=== PATIENT | female | born 1960 | race Caucasian/White ===

== ENCOUNTER → 2019-12-25 14:13 | Outpatient (CLI) | payer OTHER, SELFPAY ==
--- NOTE | ~2019-12-25 | DEXA_ITS ---
Bone Density Report Name: Aby Cazares Age: 59 Sex: Female Ethnicity: White Date of : 1960 Indication: postmenopausal; screening for osteoporosis; Referring Provider: MACHO CANTRELL Study: Bone densitometry was performed. Exam Date: December 25, 2019 Accession number: [id number] Bone Density: Region BMD T-score Z-score Classification AP Spine (L1-L4) 0.935 -1.0 0.5 Normal Femoral Neck (Left) 0.680 -1.5 -0.2 Osteopenia Total Hip (Left) 0.863 -0.6 0.4 Normal Femoral Neck (Right) 0.641 -1.9 -0.5 Osteopenia Total Hip (Right) 0.843 -0.8 0.2 Normal Total Hip Mean 0.853 -0.7 0.3 Normal World Health Organization criteria for BMD impression classify patients as: Normal (T-score at or above -1.0), Osteopenia (T-score between -1.0 and -2.5), or Osteoporosis (T-score at or below -2.5). 10-year Fracture Risk(1): Major Osteoporotic Fracture 9.1% Hip Fracture 1.0% Reported Risk Factors: [place] (), Neck BMD=0.641, BMI=29.3 (1) FRAX(R) Version 3.08. Fracture probability calculated for an untreated patient. Fracture probability may be lower if the patient has received treatment. Previous Exams: Region Exam Age BMD T-score BMD Change BMD Change Date g/cm2 vs Baseline vs Previous AP Spine(L1-L4) 12/25/2019 59 0.935 -1.0 -0.089* -0.089* 12/06/2016 56 1.024 -0.2 Total Hip(Left) 12/25/2019 59 0.863 -0.6 -0.059* -0.059* 12/06/2016 56 0.922 -0.2 Total Hip(Right) 12/25/2019 59 0.843 -0.8 -0.041* -0.041* 12/06/2016 56 0.883 -0.5 *Denotes significance at 95% confidence level, LSC for AP Spine = 0.022 g/cm2, LSC for Total Hip = 0.027 g/cm2 Clinical Information Provided by Patient: Has used the following medications: Vitamin D Patient maximum height was 65.5 Menopause Age: 42 No regular weight bearing exercise Drinks caffeinated beverages Onset of menses at age 12.5 Number of children 4 Impression: The patient has low bone mass, based on the Right Femoral Neck T-score. The patient has an estimated ten-year risk of hip fracture of 1% and an estimated ten-year risk of major fracture of 9.1%, based on the WHO FRAX algorithm. The BMD for the AP Spine(L1-L4) decreased, changing by -0.089 since the last DXA exam. The BMD for the Total Hip(Left) decreased, changing by -0.059 since the last DXA exam. The BMD for the Total Hip(Right) decreased, changing by -0.041 since the last D
== END ==
PROVIDERS: PCP Physician Assistant; Visit Provider Obstetrics & Gynecology Gynecology
DX: M85.89 Other specified disorders of bone density and structure, multiple sites (principal)
CPT/HCPCS: 77080

== ENCOUNTER 2020-03-20 07:21 | Outpatient (CLI) | payer OTHER, SELFPAY ==
[2020-03-20 08:01] LABS: Alanine Aminotransferase 27 U/L (4-35); Albumin Level 4.4 g/dL (3.5-5.1); Alkaline Phosphatase 83 U/L (38-126); Aspartate Amino Transferase 30 U/L (14-36); Bilirubin,Total 0.7 mg/dL (0.2-1.3); Blood Urea Nitrogen 12 mg/dL (7-17); Calcium 9.4 mg/dL (8.4-10.2); Carbon Dioxide 30 mmol/L (22-30); Chloride 102 mmol/L (98-107); Cholesterol 186 mg/dL (0-200); Estimated Glomerular Filt Rate > 60; Glucose 100 mg/dL (65-105); HDL Direct 69 mg/dL; Potassium 3.3 mmol/L (3.4-5.0); Sodium 139 mmol/L (137-145); Triglycerides 75 mg/dL (<150)
[2020-03-20 08:12] LABS: LDL Cholesterol Direct 94 mg/dL
[2020-03-20 08:37] LABS: Vitamin D 25 Hydroxy 59.2 ng/mL
[2020-03-20 08:42] LABS: Creatinine Urine 48.5 mg/dL
[2020-03-20 09:22] LABS: MALB Creatinine Ratio < 12.4 mg/g (0-30); Microalbumin Urine Random < 6.0 mg/L (0-16.7)
== END 2020-03-20 07:22 | disposition home or self-care (01) ==
PROVIDERS: PCP Physician Assistant; Visit Provider Obstetrics & Gynecology Gynecology
DX: E11.69 Type 2 diabetes mellitus with other specified complication (principal); E78.5 Hyperlipidemia, unspecified; R53.83 Other fatigue; E55.9 Vitamin D deficiency, unspecified
CPT/HCPCS: 36415; 80053; 80061; 82043; 82306; 83036; 84443

== ENCOUNTER 2020-04-17 09:36 | Outpatient (CLI) | payer OTHER, SELFPAY ==
[2020-04-17 10:10] LABS: Alanine Aminotransferase 47 U/L (4-35); Albumin Level 4.5 g/dL (3.5-5.1); Alkaline Phosphatase 103 U/L (38-126); Aspartate Amino Transferase 42 U/L (14-36); Bilirubin,Total 0.6 mg/dL (0.2-1.3); Blood Urea Nitrogen 12 mg/dL (7-17); Calcium 9.5 mg/dL (8.4-10.2); Carbon Dioxide 28 mmol/L (22-30); Chloride 104 mmol/L (98-107); Estimated Glomerular Filt Rate > 60; Glucose 123 mg/dL (65-105); Potassium 4.1 mmol/L (3.4-5.0); Sodium 139 mmol/L (137-145)
== END 2020-04-17 09:37 | disposition home or self-care (01) ==
PROVIDERS: PCP Physician Assistant; Visit Provider Physician Assistant
DX: E87.6 Hypokalemia (principal)
CPT/HCPCS: 36415; 80053

== ENCOUNTER 2020-08-03 15:13 | Outpatient (CLI) | payer OTHER, SELFPAY ==
[2020-08-03 16:21] LABS: Alanine Aminotransferase 40 U/L (4-35); Albumin Level 4.4 g/dL (3.5-5.1); Alkaline Phosphatase 77 U/L (38-126); Aspartate Amino Transferase 41 U/L (14-36); Bilirubin,Total 0.5 mg/dL (0.2-1.3)
[2020-08-03 16:23] LABS: Hemoglobin A1C 7.6 % (<5.7)
== END 2020-08-03 15:14 | disposition home or self-care (01) ==
LOC: ANHLAB 15:21
PROVIDERS: PCP Physician Assistant
DX: E11.65 Type 2 diabetes mellitus with hyperglycemia (principal)
CPT/HCPCS: 36415; 80076; 83036

== ENCOUNTER 2021-02-23 08:41 | Outpatient (CLI) | payer OTHER, SELFPAY ==
[2021-02-23 09:54] LABS: Alanine Aminotransferase 41 U/L (4-35); Albumin Level 4.3 g/dL (3.5-5.1); Alkaline Phosphatase 71 U/L (38-126); Anion Gap 6 mmol/L (8-16); Aspartate Amino Transferase 40 U/L (14-36); Bilirubin,Total 0.5 mg/dL (0.2-1.3); Blood Urea Nitrogen 14 mg/dL (7-17); Calcium 9.3 mg/dL (8.4-10.2); Carbon Dioxide 31 mmol/L (22-30); Chloride 105 mmol/L (98-107); Cholesterol 196 mg/dL (0-200); Estimated Glomerular Filt Rate > 60; Glucose 106 mg/dL (65-105); HDL Direct 67 mg/dL; Potassium 3.5 mmol/L (3.4-5.0); Sodium 142 mmol/L (137-145); Triglycerides 106 mg/dL (<150)
[2021-02-23 10:05] LABS: LDL Cholesterol Direct 111 mg/dL
[2021-02-23 10:24] LABS: Vitamin D 25 Hydroxy 53.5 ng/mL
[2021-02-23 10:33] LABS: Hemoglobin A1C 9.3 % (<5.7)
[2021-02-23 10:56] LABS: MALB Creatinine Ratio < 6.1 mg/g (0-30); Microalbumin Urine Random < 6.0 mg/L (0-16.7)
== END 2021-02-23 08:42 | disposition home or self-care (01) ==
PROVIDERS: PCP Physician Assistant; Referring Provider Obstetrics & Gynecology Gynecology; Visit Provider Physician Assistant
DX: E87.6 Hypokalemia (principal); E11.65 Type 2 diabetes mellitus with hyperglycemia; Z79.4 Long term (current) use of insulin
CPT/HCPCS: 36415; 80053; 80061; 82043; 82306; 83036; 84443

== ENCOUNTER 2021-07-02 07:31 | Outpatient (CLI) | payer OTHER, SELFPAY ==
[2021-07-02 08:22] LABS: Alanine Aminotransferase 29 U/L (4-35); Albumin Level 4.2 g/dL (3.5-5.1); Alkaline Phosphatase 73 U/L (38-126); Anion Gap 8 mmol/L (8-16); Aspartate Amino Transferase 29 U/L (14-36); Bilirubin,Total 0.7 mg/dL (0.2-1.3); Blood Urea Nitrogen 12 mg/dL (7-17); Carbon Dioxide 27 mmol/L (22-30); Chloride 105 mmol/L (98-107); Estimated Glomerular Filt Rate > 60; Glucose 105 mg/dL (65-110); Potassium 3.5 mmol/L (3.4-5.0); Sodium 140 mmol/L (137-145)
[2021-07-02 08:24] LABS: Hemoglobin A1C 8.6 % (<5.7)
== END 2021-07-02 07:32 | disposition home or self-care (01) ==
LOC: ANHLAB 07:33
PROVIDERS: PCP Physician Assistant; Visit Provider Physician Assistant
DX: E11.8 Type 2 diabetes mellitus with unspecified complications (principal); Z79.4 Long term (current) use of insulin
CPT/HCPCS: 36415; 80053; 83036

== ENCOUNTER 2021-10-17 00:39 | Day surgery (SDC) | payer OTHER, SELFPAY ==
[2021-10-17 08:43] VITALS: BP 126/72; PULSE 91; RESP 14; TEMP 36.6; O2SAT 100; BMI 28.1
[2021-10-17] MEDS: LACTATED RINGERS 1,000 ML 150 ML IV CONT (08:56)
[2021-10-17 09:00] LABS: Glucose Point of Care 102 mg/dl (65-105)
--- NOTE | 2021-10-17 09:08 | WPDGICN ---
Assessment and Plan Assessment and plan (1) Family history of colon cancer in father: Code(s): Z80.0 - Family history of malignant neoplasm of digestive organs Status: Acute Assessment and Plan: Patient's father had colon cancer. For this reason screening colonoscopy advised 5 year intervals. (2) History of colon polyps: Code(s): Z86.010 - Personal history of colonic polyps Status: Acute Assessment and Plan: Patient has a past history of adenomatous colon polyps. Plan to continue surveillance colonoscopies at 5 year intervals. GI Consult Note Consult date/time: 10/17/21 09:08 HPI: Aby Cazares is a 61 year old female Presents for surveillance screening colonoscopy. Patient's current weight appetite and bowel movements are normal. She denies abdominal pain. She has had no bleeding. Her family history is significant that her father had colon cancer. Patient has had interval colonoscopies for some time. Most recent colonoscopy 5 years ago. She reports having been identified as having an adenomatous colon polyp on at least 1 interval. Review of Systems Review of Systems: All systems reviewed & are unremarkable except as noted in HPI and below [facility] Family History Family History (Updated 06/09/16 @ 23:19 by DOCTOR UNKNOWN) Mother Hypertension Family history of diabetes mellitus in first degree relative Family history of congestive heart failure Father Family history of diabetes mellitus in first degree relative Family history of heart disease in male family member before age 55 Other Cerebrovascular accident Family history of allergic disorder Social History Social History Smoking status: Never smoker Alcohol intake: current Drinks per week: 3 Living arrangements: with family Spiritual care concerns: No Meds Home Medications and Allergies Home Medications Medication Instructions Recorded Confirmed Type canagliflozin-metformin [Invokamet 2 tablet PO DAILY 09/28/21 10/17/21 History XR] cyclosporine [Restasis] 1 drp OPHTHALMIC (EYE) BID 09/28/21 10/17/21 History dulaglutide [Trulicity] 1.5 mg SUBCUT WEEKLY 09/28/21 10/17/21 History ergocalciferol (vitamin D2) 1,250 mcg PO WEEKLY 09/28/21 10/17/21 History furosemide 20 mg PO DAILY 09/28/21 10/17/21 History insulin glargine [Lantus Solostar 40 unit SUBCUT DAILY 09/28/21 10/17/21 History U-100 Insulin] linaclotide [Linzess] 72 mcg PO DAILY 09/28/21 10/17/21 History lisinopril 20 mg PO DAILY 09/28/21 10/17/21 History pantoprazole 40 mg PO DAILY 09/28/21 10/17/21 History potassium chloride 10 meq PO DAILY 09/28/21 10/17/21 History pravastatin 40 mg PO DAILY 09/28/21 10/17/21 History Allergies Allergy/AdvReac Type Severity Reaction Status Date / Time adhesive Allergy Unknown BLISTERS Unverified 10/17/21 08:42 Sulfa (Sulfonamide Allergy Unknown Unknown Verified 10/17/21 08:42 Antibiotics) Vital Signs Vital Signs - 24 hr 10/17/21 08:43 Temperature 97.9 F Pulse Rate 91 Respiratory Rate 14 Blood Pressure 126/72 Pulse Oximetry 100 Exam Narrative: Physical exam reveals patient to be alert. Vital signs stable. HEENT exam is unremarkable. Patient is anicteric. Lungs are clear to auscultation and percussion. Heart is without murmur or extra sounds. Abdominal exam bowel sounds are present soft nontender with no organomegaly. Digital external rectal exam is normal.
--- NOTE | 2021-10-17 09:34 | P.PNAN_ITS ---
Anes - Initial Pre Proc Eval Procedure: Operation Date: 10/17/21 09:30 Proposed Procedures p Screening Colonoscopy - Jameson Barahona MD Date/Time: 10/17/21 09:34 Surgeon: Jameson Barahona MD Pre Op Diagnosis: hx of colon polyps Patient Data Age: 61 Gender: F Height: 1.65 m Weight: 76.8 kg Last Vital Signs Temp 97.9 F 10/17/21 08:43 Pulse 91 10/17/21 08:43 Resp 14 10/17/21 08:43 BP 126/72 10/17/21 08:43 Pulse Ox 100 10/17/21 08:43 Allergies Allergy/AdvReac Type Severity Reaction Status Date / Time adhesive Allergy Unknown BLISTERS Unverified 10/17/21 08:42 Sulfa (Sulfonamide Allergy Unknown Unknown Verified 10/17/21 08:42 Antibiotics) Home Medications Medication Instructions Recorded Confirmed Type canagliflozin-metformin [Invokamet 2 tablet PO DAILY 09/28/21 10/17/21 History XR] cyclosporine [Restasis] 1 drp OPHTHALMIC (EYE) BID 09/28/21 10/17/21 History dulaglutide [Trulicity] 1.5 mg SUBCUT WEEKLY 09/28/21 10/17/21 History ergocalciferol (vitamin D2) 1,250 mcg PO WEEKLY 09/28/21 10/17/21 History furosemide 20 mg PO DAILY 09/28/21 10/17/21 History insulin glargine [Lantus Solostar 40 unit SUBCUT DAILY 09/28/21 10/17/21 History U-100 Insulin] linaclotide [Linzess] 72 mcg PO DAILY 09/28/21 10/17/21 History lisinopril 20 mg PO DAILY 09/28/21 10/17/21 History pantoprazole 40 mg PO DAILY 09/28/21 10/17/21 History potassium chloride 10 meq PO DAILY 09/28/21 10/17/21 History pravastatin 40 mg PO DAILY 09/28/21 10/17/21 History Laboratory Tests 10/17/21 08:54 POC Capillary Glucose 102 mg/dl mg/dl (65-105) Patient hx anesthesia problems: none Family hx anesthesia problems: none Results Review: All pre-operative results and documents have been reviewed as part of the pre-operative evaluation. [facility] Family History Family History (Updated 06/09/16 @ 23:19 by DOCTOR UNKNOWN) Mother Hypertension Family history of diabetes mellitus in first degree relative Family history of congestive heart failure Father Family history of diabetes mellitus in first degree relative Family history of heart disease in male family member before age 55 Other Cerebrovascular accident Family history of allergic disorder Social History Social History Smoking status: Never smoker Alcohol intake: current Drinks per week: 3 Living arrangements: with family Spiritual care concerns: No Anes - Eval Final PreProcedure Day of Procedure 10/17/21 09:34 Patient weight: overweight Heart: regular rate and rhythm Lungs: clear to auscultation Airway: Mallampati scale class II Neurological: alert and oriented Last oral intake: >/= 8 hours ASA classification: III Emergent: no Anesthetic plan: proceed Anesthesia type and monitoring: general GIVS and standard monitoring Results Review: All pre-operative results and documents have been reviewed as part of the pre-operative evaluation. Informed Consent: The patient's anesthetic plan and its attendant risks and benefits were discussed with the patient/family/POA. Questions were solicited and answers provided to the satisfaction of the patient/fam
[2021-10-17 09:51] VITALS: BP 115/77; PULSE 92; RESP 19; O2SAT 99
[2021-10-17 10:00] VITALS: BP 143/85; PULSE 88; RESP 16; O2SAT 100
[2021-10-17 10:03] LABS: Glucose Point of Care 72 mg/dl (65-105)
[2021-10-17 10:10] VITALS: BP 116/65; PULSE 79; RESP 16; O2SAT 98
== END 2021-10-17 10:00 | disposition home or self-care (01) ==
PROVIDERS: PCP Physician Assistant; Visit Provider Internal Medicine Gastroenterology
PROC: 0DJD8ZZ Inspection of Lower Intestinal Tract, Via Natural or Artificial Opening Endoscopic (ICD-10-PCS; CPT 45378; principal; 2021-10-17 09:30)
DX: Z12.11 Encounter for screening for malignant neoplasm of colon (principal); K64.8 Other hemorrhoids; Z80.0 Family history of malignant neoplasm of digestive organs; Z86.010 Personal history of colon polyps; Z79.4 Long term (current) use of insulin
CPT/HCPCS: 45378; 82948; J2704; J7120

== ENCOUNTER 2021-11-21 15:27 | Outpatient (CLI) | payer OTHER, SELFPAY ==
[2021-11-21 15:56] LABS: Alanine Aminotransferase 29 U/L (4-35); Albumin Level 4.3 g/dL (3.5-5.1); Alkaline Phosphatase 87 U/L (38-126); Anion Gap 9 mmol/L (8-16); Aspartate Amino Transferase 28 U/L (14-36); Bilirubin,Total 0.5 mg/dL (0.2-1.3); Blood Urea Nitrogen 14 mg/dL (7-17); Calcium 9.4 mg/dL (8.4-10.2); Carbon Dioxide 27 mmol/L (22-30); Chloride 99 mmol/L (98-107); Estimated Glomerular Filt Rate > 60; Glucose 291 mg/dL (65-110); Potassium 3.6 mmol/L (3.4-5.0); Sodium 135 mmol/L (137-145)
[2021-11-21 18:32] LABS: Hemoglobin A1C 8.4 % (<5.7)
== END 2021-11-21 15:28 | disposition home or self-care (01) ==
LOC: ANHLAB 15:29
PROVIDERS: PCP Physician Assistant; Visit Provider Physician Assistant
DX: E11.69 Type 2 diabetes mellitus with other specified complication (principal); E78.5 Hyperlipidemia, unspecified
CPT/HCPCS: 36415; 80053; 83036; 84443

== ENCOUNTER 2022-05-13 08:57 | Outpatient (CLI) | payer OTHER, SELFPAY ==
[2022-05-13 10:13] LABS: Alanine Aminotransferase 38 U/L (6-35); Albumin Level 4.2 g/dL (3.5-5.1); Alkaline Phosphatase 85 U/L (38-126); Anion Gap 4 mmol/L (8-16); Aspartate Amino Transferase 39 U/L (14-36); Bilirubin,Total 0.9 mg/dL (0.2-1.3); Blood Urea Nitrogen 12 mg/dL (7-17); Calcium 8.6 mg/dL (8.4-10.2); Carbon Dioxide 30 mmol/L (22-30); Chloride 107 mmol/L (98-107); Estimated Glomerular Filt Rate > 60; Glucose 133 mg/dL (65-110); Potassium 3.5 mmol/L (3.4-5.0); Sodium 141 mmol/L (137-145)
[2022-05-13 10:16] LABS: Hemoglobin A1C 9.6 % (<5.7)
== END 2022-05-13 08:58 | disposition home or self-care (01) ==
LOC: ANHLAB 09:00
PROVIDERS: PCP Physician Assistant; Visit Provider Physician Assistant
DX: E11.8 Type 2 diabetes mellitus with unspecified complications (principal); Z79.4 Long term (current) use of insulin
CPT/HCPCS: 36415; 80053; 83036

== ENCOUNTER 2023-03-12 15:53 | Outpatient (CLI) | payer OTHER, SELFPAY | END 2023-03-12 15:54 | disposition home or self-care (01) | LOC: ANHLAB 15:54 | PROVIDERS: PCP Physician Assistant; Visit Provider Obstetrics & Gynecology Gynecology | DX: E55.9 Vitamin D deficiency, unspecified (principal) | CPT/HCPCS: 36415; 82306 ==

== ENCOUNTER → 2023-06-04 10:57 | Outpatient (CLI) | payer OTHER, SELFPAY ==
--- NOTE | ~2023-06-04 | DEXA_ITS ---
Bone Density Report Name: ERROL ARAUJO Age: 62 Sex: Female Ethnicity: White Date of : 1960 Indication: postmenopausal; screening for osteoporosis; Referring Provider: MACHO CANTRELL Study: Bone densitometry was performed. Exam Date: June 04, 2023 Accession number: [id number] Bone Density: Region BMD T-score Z-score Classification AP Spine (L1-L4) 0.920 -1.2 0.6 Osteopenia Femoral Neck (Left) 0.680 -1.5 0.0 Osteopenia Total Hip (Left) 0.861 -0.7 0.6 Normal Femoral Neck (Right) 0.620 -2.1 -0.6 Osteopenia Total Hip (Right) 0.834 -0.9 0.3 Normal Total Hip Mean 0.848 -0.8 0.5 Normal World Health Organization criteria for BMD impression classify patients as: Normal (T-score at or above -1.0), Osteopenia (T-score between -1.0 and -2.5), or Osteoporosis (T-score at or below -2.5). 10-year Fracture Risk(1): Major Osteoporotic Fracture 10% Hip Fracture 1.5% Reported Risk Factors: [place] (), Neck BMD=0.620, BMI=30.2 (1) FRAX(R) Version 3.08. Fracture probability calculated for an untreated patient. Fracture probability may be lower if the patient has received treatment. Previous Exams: Region Exam Age BMD T-score BMD Change BMD Change Date g/cm2 vs Baseline vs Previous AP Spine(L1-L4) 06/04/2023 62 0.920 -1.2 -0.104* -0.015 12/25/2019 59 0.935 -1.0 -0.089* -0.089* 12/06/2016 56 1.024 -0.2 Total Hip(Left) 06/04/2023 62 0.861 -0.7 -0.061* -0.002 12/25/2019 59 0.863 -0.6 -0.059* -0.059* 12/06/2016 56 0.922 -0.2 Total Hip(Right) 06/04/2023 62 0.834 -0.9 -0.050* -0.009 12/25/2019 59 0.843 -0.8 -0.041* -0.041* 12/06/2016 56 0.883 -0.5 *Denotes significance at 95% confidence level, LSC for AP Spine = 0.022 g/cm2, LSC for Total Hip = 0.027 g/cm2 Clinical Information Provided by Patient: Has used the following medications: Vitamin D, MTV Patient maximum height was 65.5 Menopause Age: 42 No regular weight bearing exercise Drinks caffeinated beverages Onset of menses at age 12 Number of children 4 Impression: The patient has low bone mass, based on the Right Femoral Neck T-score. The patient has an estimated ten-year risk of hip fracture of 1.5% and an estimated ten-year risk of major fracture of 10%, based on the WHO FRAX algorithm. No significant bone loss was observed. Discussion:
== END ==
PROVIDERS: PCP Obstetrics & Gynecology Gynecology; Visit Provider Obstetrics & Gynecology Gynecology
DX: Z78.0 Asymptomatic menopausal state (principal); M85.89 Other specified disorders of bone density and structure, multiple sites
CPT/HCPCS: 77080

== ENCOUNTER 2023-06-21 06:39 | Day surgery (SDC) | payer OTHER, SELFPAY ==
--- NOTE | 2023-06-20 10:48 | WPDANESEPPF ---
Anes - Initial Pre Proc Eval Procedure: Operation Date: 06/21/23 08:30 Proposed Procedures p Esophagogastroduodenoscopy - Jameson Barahona MD Date/Time: 06/20/23 10:48 Surgeon: Jameson Barahona MD Pre Op Diagnosis: Gerd without Esophagitis, Unspecifed Dysphagia Patient Data Age: 62 Gender: F Height: 1.66 m Weight: 83.5 kg Allergies Allergy/AdvReac Type Severity Reaction Status Date / Time adhesive Allergy Unknown BLISTERS Verified 06/21/23 07:26 Sulfa (Sulfonamide Allergy Unknown Unknown Verified 06/21/23 07:26 Antibiotics) Home Medications Medication Instructions Recorded Confirmed Type cyclosporine 0.05 % eye drops in a 1 drp ophthalmic (eye) BID 09/28/21 06/21/23 History dropperette (Restasis) ergocalciferol (vitamin D2) 1,250 1,250 mcg PO WEEKLY 09/28/21 06/21/23 History mcg (50,000 unit) capsule furosemide 20 mg tablet 20 mg PO DAILY 09/28/21 06/21/23 History lisinopril 20 mg tablet 20 mg PO DAILY 09/28/21 06/21/23 History pantoprazole 40 mg tablet,delayed 40 mg PO DAILY 09/28/21 06/21/23 History release potassium chloride 10 mEq 10 meq PO DAILY 09/28/21 06/21/23 History tablet,extended release pravastatin 40 mg tablet 40 mg PO DAILY 09/28/21 06/21/23 History linaclotide 72 mcg capsule See Rx Instructions .Route 12/11/22 06/21/23 Rx (Linzess) .COMPLEX #30 caps dulaglutide 1.5 mg/0.5 mL 3 mg subcut WEEKLY 06/06/23 06/21/23 History subcutaneous pen injector (Trulicity) empagliflozin 12.5 mg-metformin ER 1 tablet PO BID 06/06/23 06/21/23 History 1,000 mg tablet,extended rel 24 hr (Synjardy XR) insulin degludec 200 unit/mL (3 40 unit subcut DAILY 06/06/23 06/21/23 History mL) subcutaneous pen (Tresiba FlexTouch U-200 insulin) Patient hx anesthesia problems: none Family hx anesthesia problems: none Results Review: All pre-operative results and documents have been reviewed as part of the pre-operative evaluation. [facility] Past Medical History Medical History (Updated 06/20/23 @ 10:49 by Nathaniel Vilchis DO) Diabetes type 2, controlled Gastroesophageal reflux disease Hyperlipidemia Hypertension Surgical History Surgical History (Updated 06/20/23 @ 10:49 by Nathaniel Vilchis DO) History of History of tubal ligation Family History Family History Mother Hypertension Family history of diabetes mellitus in first degree relative Family history of congestive heart failure Father Family history of diabetes mellitus in first degree relative Family history of heart disease in male family member before age 55 Other Cerebrovascular accident Family history of allergic disorder Social History Social History Smoking status: Never smoker Alcohol intake: current Drinks per week: 3 Substance use: never Substance use type: does not use Living arrangements: with family Spiritual care concerns: No Anes - Eval Final PreProcedure Day of Procedure 06/20/23 10:48 Patient weight: obese Heart: regular rate and rhythm Lungs: clear to auscultation Airway: Mallampati scale class II Neurological: alert and oriented Last oral intake: >/= 8 hours ASA classification: III Emergent: no Anesthetic plan: proceed Anesthesia type and monitoring: general GIVS and standard monitoring Results Review: All pre-operative results and documents have been reviewed as part of the pre-operative evaluation. Informed Consent: The patient's anesthetic plan and its attendant risks and benefits were discussed with the patient/family/POA. Questions were solicited and answers provided to the satisfaction of the patient/family/POA.
[2023-06-21 07:21] VITALS: BP 146/83; PULSE 96; RESP 16; TEMP 36.4; O2SAT 99
--- NOTE | 2023-06-21 07:27 | WPDHPUPDATE1 ---
History and Physical Update Update Date/Time: 06/21/23 07:27 History and Physical has been reviewed, including an updated exam of the patient. There are NO changes in the patient's condition. Risks, benefits, and alternatives have been discussed and questions answered. Patient agrees to proceed with procedure.
[2023-06-21] MEDS: LACTATED RINGERS 1,000 ML 150 ML IV CONT (07:41)
[2023-06-21 07:42] LABS: Glucose Point of Care 116 mg/dl (65-105)
[2023-06-21 08:42] VITALS: BP 124/73; PULSE 88; RESP 16; O2SAT 99
[2023-06-21 08:52] VITALS: BP 128/77; PULSE 83; RESP 16; O2SAT 99
[2023-06-21 09:02] VITALS: BP 139/82; PULSE 74; RESP 15; O2SAT 99
--- NOTE | 2023-06-21 12:34 | WPDANESPN ---
Anes - Prog Note Post-Op Date/Time: 06/21/23 12:34 Cardiovascular status: normal Respiratory status: normal Airway patency: baseline Mental status: baseline Post-Op hydration status: normal Vital Signs: Last Vital Signs Temp 36.4 C L 06/21/23 07:21 Pulse 74 06/21/23 09:02 Resp 15 06/21/23 09:02 BP 139/82 06/21/23 09:02 Pulse Ox 99 06/21/23 09:02 O2 Del Method Room Air 06/21/23 09:02 Pain Score (VAS): 0 I/O: Intake & Output 06/20/23 06/21/23 06/21/23 23:59 07:59 15:59 Intake Total 200 Balance 200 06/21/23 07:38 POC Capillary Glucose 116 H Post-procedural complaints: none Patient Feedback: Patient satisfied with anesthetic care. Other Findings: Patient vital signs back to baseline. Patient denies nausea and vomiting. Patient's pain under control. Patient OK for discharge.
== END 2023-06-21 09:27 | disposition home or self-care (01) ==
PROVIDERS: PCP Physician Assistant; Visit Provider Internal Medicine Gastroenterology
PROC: 0DJ08ZZ Inspection of Upper Intestinal Tract, Via Natural or Artificial Opening Endoscopic (ICD-10-PCS; CPT 43235; principal; 2023-06-21 08:30)
DX: K21.9 Gastro-esophageal reflux disease without esophagitis (principal); R13.19 Other dysphagia; K31.7 Polyp of stomach and duodenum
CPT/HCPCS: 43251; 43450

== ENCOUNTER 2023-06-21 08:00 | Outpatient (NON) | payer OTHER, SELFPAY | END 2023-06-21 08:01 | disposition home or self-care (01) | PROVIDERS: PCP Physician Assistant; Visit Provider Internal Medicine Gastroenterology | DX: K21.9 Gastro-esophageal reflux disease without esophagitis (principal) | CPT/HCPCS: 88305 ==

== ENCOUNTER 2025-08-19 15:16 | Outpatient (CLI) | payer OTHER, SELFPAY ==
--- NOTE | ~2025-08-19 | DEXA_ITS ---
Bone Density Report Name: ERROL ARAUJO Age: 65 Sex: Female Ethnicity: White Date of : 1960 Indication: osteopenia; height loss; inflammatory bowel disease; Referring Provider: MACHO CANTRELL Study: Bone densitometry was performed. Exam Date: August 19, 2025 Accession number: [id number] Bone Density: Region BMD T-score Z-score Classification AP Spine(L1-L4) 0.881 -1.5 0.4 Osteopenia Femoral Neck (Left) 0.661 -1.7 -0.1 Osteopenia Total Hip (Left) 0.824 -1.0 0.4 Normal Femoral Neck (Right) 0.560 -2.6 -1.0 Osteoporosis Total Hip (Right) 0.799 -1.2 0.2 Osteopenia Total Hip Mean 0.812 -1.1 0.3 Osteopenia World Health Organization criteria for BMD impression classify patients as: Normal (T-score at or above -1.0), Osteopenia (T-score between -1.0 and -2.5), or Osteoporosis (T-score at or below -2.5). 10-year Fracture Risk: FRAX not reported because: Some T-score for Spine Total or Hip Total or Femoral Neck at or below -2.5 Previous Exams: -- Region Exam Age BMD T-score BMD Change BMD Change Date g/cm2 vs Baseline vs Previous -- AP Spine (L1-L4) 08/19/2025 65 0.881 -1.5 -13.9%* -4.2%* 06/04/2023 62 0.920 -1.2 -10.1%* -1.6% 12/25/2019 59 0.935 -1.0 -8.7%* -8.7%* 12/06/2016 56 1.024 -0.2 Total Hip(Left) 08/19/2025 65 0.824 -1.0 -10.6%* -4.3%* 06/04/2023 62 0.861 -0.7 -6.6%* -0.2% 12/25/2019 59 0.863 -0.6 -6.4%* -6.4%* 12/06/2016 56 0.922 -0.2 Total Hip(Right) 08/19/2025 65 0.799 -1.2 -9.5%* -4.1%* 06/04/2023 62 0.834 -0.9 -5.6%* -1.1% 12/25/2019 59 0.843 -0.8 -4.6%* -4.6%* 12/06/2016 56 0.883 -0.5 -- *Denotes significance at 95% confidence level, LSC for AP Spine = 0.022 g/cm2, LSC for Total Hip = 0.027 g/cm2 Clinical Information Provided by Patient: Has used the following medications: Vitamin D Has the following medical conditions: Inflammatory bowel diseases Patient maximum height was 66 Menopause Age: 42 No regular weight bearing exercise Drinks caffeinated beverages Onset of menses at age 12 Number of children 3 Impression: The patient has osteoporosis, based on the Right Femoral Neck T-score. The BMD for the AP Spine (L1-L4) decreased, changing by -4.2% since the last DXA exam. The BMD for the Total Hip(Left) decreased, changing by -4.3% since the last DXA exam. The BMD for the Total Hip(Right) decreased, changing by -4.1% since the last DXA exam. Discussion: INCREASED RISK OF FRACTURE. BONE DENSITY IS UNDESIRABLY LOW AT ONE OR MORE SKELETAL SITES, CONSISTENT WITH POSTMENOPAUSAL OSTEOPOROSIS. This patient's lowest T-score meets the World Health Organization's (WHO) criteria for osteoporosis at one or more sites (T-score -2.5 or below). In untreated patients, the risk of osteoporotic fracture increases approximately two-fold for each 1.0 SD decrease in T-score. Low bone density is not the only risk factor for fracture; also consider factors such as patient's age, frailty or poor health, risk of falling, risk of injury, previous osteoporotic fracture, family history of osteoporosis, cigarette smoking, low body weight, etc. Not everyone with low bone mineral density has osteoporosis; osteomalacia and other metabolic bone disorders should also be considered. Patients who have osteoporosis should be evaluated for specific diseases and conditions (secondary causes) that may cause or contribute to bone loss. The [place] [employer] (AACE) and National Osteoporosis Foundation (NOF) recommend pharmacologic intervention for all postmenopausal women whose T-score is in this range. The patient should follow a healthful lifestyle (good nutrition with adequate calcium and vitamin D, and appropriate weight-bearing exercise). Follow-Up: Consider a repeat BMD and Vertebral Fracture Assessment (VFA) exam in 2 years or sooner if medically necessary, to reassess this patient's status. Reported by: REKHA on 08/19/2025 3:47:00 PM. Reviewed, dictated and finalized at location A.
== END 2025-08-19 15:17 | disposition home or self-care (01) ==
LOC: MICIMG 15:16
PROVIDERS: PCP Obstetrics & Gynecology Gynecology; Visit Provider Obstetrics & Gynecology Gynecology
DX: M81.0 Age-related osteoporosis without current pathological fracture (principal); M85.89 Other specified disorders of bone density and structure, multiple sites; Z78.0 Asymptomatic menopausal state
CPT/HCPCS: 77080